=== PATIENT | female | born 1955 | race Two or more races ===

== ENCOUNTER 2022-08-27 07:20 | Day surgery (SDC) | payer OTHER ==
[~2022-08-27] VITALS: Ht 152.4 cm; Wt 52.2 kg
[~2022-08-27 07:20] MED LIST: HYDROCHLOROTHIA25 MG PO; ZESTRIL20 MG PO
== END 2022-08-27 15:10 | disposition home or self-care (01) ==
LOC: CIR.AMB 07:20
PROVIDERS: ATTEND Surgery
DX: D24.2 Benign neoplasm of left breast (principal); I10 Essential (primary) hypertension; Z20.822 Contact with and (suspected) exposure to COVID-19